=== PATIENT | male | born 1990 | race African-American/Black ===

== ENCOUNTER 2022-11-06 16:45 | Emergency (ER) | payer BC ==
[~2022-11-06] VITALS: Ht 177.8 cm; Wt 63.5 kg
[2022-11-06 17:00] VITALS: BP 108/75; TEMP 98.2; O2SAT 98
[2022-11-06] MEDS ORDERED: PENI500T PO (17:48)
[2022-11-06] MEDS ORDERED: IBUP-1955 PO (17:48)
[2022-11-06] MEDS ORDERED: KETOROLAC TROMETHAMINE INJ 30 MG/ML VIAL ONE (17:52)
[2022-11-06] MEDS ORDERED: AMOX/CLAVULANATE 875 MG TABLET ONE (17:59)
[2022-11-06] MEDS ORDERED: PENICILLIN V POTASSIUM 500 MG TABLET PO ONE (18:00)
[2022-11-06] MEDS ORDERED: KETOROLAC TROMETHAMINE INJ 30 MG/ML VIAL IM ONE (18:00)
[2022-11-06] MEDS ORDERED: AMOX/CLAVULANATE 875 MG TABLET PO ONE (18:00)
== END 2022-11-06 18:03 | disposition home or self-care (01) ==
LOC: EDBD 16:54 → ER 16:54
DX: K02.9 Dental caries, unspecified (principal); K05.10 Chronic gingivitis, plaque induced; K04.01 Reversible pulpitis; Z79.899 Other long term (current) drug therapy
CPT/HCPCS: 99283; 96372; J1885